=== PATIENT | female | born 1960 | race Caucasian/White ===

== ENCOUNTER 2021-09-11 12:51 | Outpatient (CLI) | payer OTHER, SELFPAY ==
--- NOTE | 2021-09-11 13:02 | MM_ITS ---
WS: [id number] BILATERAL SCREENING MAMMOGRAM WITH SANDOR DISPLACEMENT VIEWS. CAD PERFORMED. HISTORY: SCREENING COMPARISON: 10/05/2016 Bilateral craniocaudal and mediolateral like views are performed. Sandor displacement views in CC and MLO projection also performed. Breasts composition: There are scattered areas of fibroglandular density. Calcification in the anterior RIGHT breast have slightly progressed since 2012. Implants are intact. MM/[id number] IMPRESSION: BI-RADS: 2-Benign FOLLOW-UP: 1 Year Follow-up
== END 2021-09-11 12:52 | disposition home or self-care (01) ==
LOC: RADSHAW 12:58
PROVIDERS: PCP Family Medicine; Visit Provider Family Medicine
DX: Z12.31 Encounter for screening mammogram for malignant neoplasm of breast (principal)
CPT/HCPCS: 77067